=== PATIENT | female | born 1955 | race Caucasian/White ===

== ENCOUNTER 2022-04-25 14:02 | Inpatient (IN) | payer MEDICARE, SELFPAY ==
[2022-04-25] VITALS (28 sets, daily range): BP systolic 118–158; BP diastolic 60–91; PULSE 63–92; RESP 12–26; TEMP 36.6–36.8; O2SAT 90–100; BMI 28.3
--- NOTE | ~2022-04-25 | XR_ITS ---
EXAMINATION: XR chest 2V Exam Date/Time: 04/25/2022 14:15 CDT HISTORY: cp RADIATES TO MID BACK ANXIETY HX HTN Comparison: 01/07/2015. RESULT: Lines, tubes, and devices: None. Lungs and pleura: Clear. Cardiomediastinal silhouette: Stable. Other: No acute osseous or upper abdominal finding. IMPRESSION: No acute cardiopulmonary process. Reviewed, dictated and finalized at location K.
--- NOTE | 2022-04-25 14:03 | ECG_ITS ---
Measurements Intervals [place] Rate: 70 P: 48 DC: 163 QRS: 72 QRSD: 88 T: 13 QT: 403 QTc: 437 Interpretive Statements SINUS RHYTHM NONSPECIFIC ST ABNORMALITY BORDERLINE ECG NO PREVIOUS ECG AVAILABLE FOR COMPARISON Electronically Signed On 04-25-2022 15:37:20 CDT by Ej Guzman M.D.
[2022-04-25 14:26] LABS: Basophils Percent Auto 0.4 % (0.2-1.2); Eosinophils Absolute Auto 0.1 K/mm3 (0-0.3); Eosinophils Percent Auto 1.4 % (0-4.4); Hematocrit 38.5 % (37.0-47.0); Hemoglobin 12.4 g/dL (12.0-15.0); Immature Granulocyte Absolute 0.02 K/mm3 (0.00-0.031); Immature Granulocyte Percent A 0.4 % (0-0.5); Lymphocytes Absolute Auto 0.99 K/mm3 (0.9-3.2); Lymphocytes Percent Auto 17.9 % (18.3-44.2); Mean Corpuscular HGB Conc 32.2 g/dl (32-36); Mean Corpuscular Hemoglobin 29.9 pg (26-34); Mean Corpuscular Volume 92.8 fl (80-100); Mean Platelet Volume 9.6 fl (7.4-10.4); Monocytes Absolute Auto 0.4 K/mm3 (0.1-0.6); Neutrophils Percent Auto 71.9 % (45.5-73.1); Platelet Count Result 229 k/mm3 (150-375); Red Blood Count 4.15 M/mm3 (4.2-5.4); Red Cell Distribution Width 13.3 % (11.5-14.5); White Blood Count 5.5 K/mm3 (4.5-10.0)
[2022-04-25 14:35] LABS: Prothrombin Time 12.6 Seconds (11.1-14.7)
[2022-04-25 14:36] LABS: Partial Thromboplastin Time 30.2 SECONDS (22.3-36.8)
[2022-04-25 14:38] LABS: Alanine Aminotransferase 24 U/L (6-35); Albumin Level 4.4 g/dL (3.5-5.1); Alkaline Phosphatase 102 U/L (38-126); Anion Gap 7 mmol/L (8-16); Aspartate Amino Transferase 25 U/L (14-36); Bilirubin,Total 0.4 mg/dL (0.2-1.3); Blood Urea Nitrogen 18 mg/dL (7-17); Calcium 9.4 mg/dL (8.4-10.2); Carbon Dioxide 24 mmol/L (22-30); Chloride 109 mmol/L (98-107); Estimated CRCL calculation 48 ml/min; Estimated Glomerular Filt Rate > 60; Glucose 115 mg/dL (65-110); Lipase 52 U/L (23-300); Potassium 3.2 mmol/L (3.4-5.0); Sodium 140 mmol/L (137-145)
[2022-04-25 15:04] LABS: Troponin I 0.412 ng/mL (0.000-0.034)
--- NOTE | 2022-04-25 15:23 | ED.GENADULT ---
HPI - General Adult General Chief complaint: Chest Pain Stated complaint: chest pain real bad Time Seen by Provider: 04/25/22 14:55 History of Present Illness HPI narrative: 67-year-old female presents to the emergency department for evaluation of chest pain that is started approximately 11 AM this morning. Patient states that she was waiting in the waiting room and ER to see her cousin who was very close to her and found out that the cousin unexpectedly. This is also the close to the 3-year anniversary of the patient's father dying of a massive heart attack. Patient states that the chest pain is substernal and radiates to her back. Patient states since the pain started it has since improved. Patient states she is still having a chest pressure. Patient denies any prior history of heart disease for herself. Patient does have a psychiatric history. Patient takes clonazepam, alprazolam, gabapentin, Lamictal, Topamax and Cymbalta Related Data Home Medications Medication Instructions Recorded Confirmed alprazolam 1 mg tablet 1 mg PO DAILY 12/12/20 04/25/22 topiramate 100 mg capsule 100 mg PO DAILY 12/12/20 04/25/22 sprinkle,extended release 24 hr clonazepam 1 mg tablet 1 mg PO TID 01/29/22 04/25/22 Allergies Allergy/AdvReac Type Severity Reaction Status Date / Time codeine Allergy Intermediate ITCHING Verified 01/29/22 13:21 morphine Allergy Intermediate ITCHING Verified 01/29/22 13:21 Review of Systems Review of Systems: CONSTITUTIONAL: Denies fever, chills, or sweats. EYES: Denies visual changes, redness, or discharge. ENT: Denies rhinorrhea, congestion, sore throat, or otalgia. CARDIOVASCULAR: See HPI RESPIRATORY: Denies cough or dyspnea. GASTROINTESTINAL: Denies abdominal pain, nausea, vomiting, or diarrhea. GENITOURINARY: Denies dysuria or hematuria. SKIN: Denies rash or itching. MUSCULOSKELETAL: Denies back pain, joint pain, or myalgia. NEUROLOGIC: Denies headache, numbness, or weakness. [facility] Past Medical History Medical History (Updated 04/26/22 @ 06:57 by Juan A Conway MD) Arthritis Bipolar disorder Depression with anxiety Fibromyalgia Gastroesophageal reflux disease Surgical History Surgical History (Updated 04/25/22 @ 20:34 by Sissy Mcnamara PA-C) History of hysterectomy For endometriosis. Family History Family History Father Hypertension Thyroid condition Atrial fibrillation Mother Hypertension Sibling Hypertension Thyroid condition Social History Social History (Updated 04/25/22 @ 20:34 by Sissy Mcnamara PA-C) Social History: Surrogate medical decision maker: Wes Nelson, spouse. Code status: Full code. Smoking status: Never smoker Alcohol intake: never Substance use: never Additional living arrangements comments: Lives in [place] with spouse. Spiritual care concerns: No Exam Narrative: APPEARANCE: Well appearing, no pain, no distress, well-nourished. HEAD: normocephalic, atraumatic. EYES: PERRLA/EOMI, conjunctivae clear. NOSE: Normal no drainage NECK: Supple. No adenopathy, no masses. RESPIRATORY: Airway patent, respirations nonlabored. Clear to auscultation bilaterally, no rales, rhonchi, wheezing. CARDIOVASCULAR: Regular rate and rhythm without murmurs rubs or gallops. ABDOMINAL: Soft, nontender, nondistended, normal bowel sounds MUSCULOSKELETAL: Moves all extremities. Strength/ROM intact, No edema, No calf tenderness. NEURO: Alert. Cranial nerves II through XII intact. Grossly intact SKIN: Warm, dry. Normal Color Course Course Emergency Course: Initial EKG did have some nonspecific ST changes. Troponin was elevated at 0.412. Repeat EKG done 2 hours after arrival showed some improvement of the ST depressions. Case was discussed with Dr. Guzman and well he agreed there was nonspecific ST changes he did not feel qualified as a STEMI, he stated that if the EKG was
[2022-04-25] MEDS: NITROGLYCERIN SL 0.4 MG TABLET SUBLINGUAL (15:43)
[2022-04-25] MEDS: ASPIRIN 81 MG CHEWABLE TABLET 162 MG PO (15:43)
--- NOTE | 2022-04-25 16:15 | PM.IMHP ---
H&P: HPI History of Present Illness Date/Time: 04/25/22 16:15 <Sissy Mcnamara PA-C - Last Filed: 04/25/22 20:38> date of service 04/25/22 16:15 <Marisabel Wilson MD - Last Filed: 04/30/22 08:55> Chief Complaint: Chest pain. <Sissy Mcnamara PA-C - Last Filed: 04/25/22 20:38> Narrative: This is a 67-year-old female with bipolar disorder and anxiety who presented to the ED via private vehicle for evaluation of chest pain. She was in her usual state of health when she got up this morning. Mid morning she received a phone call that her cousin had in the ER at [place], 2 weeks after having open heart surgery. This was unexpected and devastating news to the patient and not long after she developed midsternal chest pressure which radiated through to the back. It has been constant since the outset and she has not noticed any significant aggravating or alleviating factors. She denies associated lightheadedness, dizziness, shortness of breath, nausea, vomiting, and diaphoresis. She has had similar episodes before, mainly at times of high stress. She has not had exertional chest pain or shortness of breath. 30+ years ago she had a stress test which was normal. She has no known history of coronary disease. EKG done on arrival to the ER showed nonspecific ST abnormalities in the high lateral leads and her initial troponin was elevated 0.412. She was given nitroglycerin x1 which took a little bit of the edge off but she continued to have chest pressure and her 3 hour troponin came back at 3.010. Due to ongoing discomfort the decision was made to take her for coronary angiography. <Sissy Mcnamara PA-C - Last Filed: 04/25/22 20:38> Review of Systems Review of Systems: Twelve systems were reviewed. She suffers from anxiety and has panic attacks. Initially she thought her chest pressure was related to anxiety from hearing the news of her cousins passing. No recent cold or flu symptoms. No recent vaccines. Except as documented, all other systems were reviewed and are negative. <Sissy Mcnamara PA-C - Last Filed: 04/25/22 20:38> All systems reviewed & are unremarkable except as noted in HPI and below <Marisabel Wilson MD - Last Filed: 04/30/22 08:55> Constitutional: Constitutional: Denies chills, Denies fatigue, Denies fever(s), Denies headache(s) and Denies snoring <Marisabel Wilson MD - Last Filed: 04/30/22 08:55> Eyes: Eyes: Denies eye discharge and Denies loss of vision <Marisabel Wilson MD - Last Filed: 04/30/22 08:55> ENT: Denies dizziness, Denies headache(s), Denies nasal discharge and Denies sore throat <Marisabel Wilson MD - Last Filed: 04/30/22 08:55> Cardiovascular: Cardiovascular: Reports as per HPI, Reports chest pain, Denies syncope, Denies rapid heart rate, Denies leg edema, Denies dyspnea, Reports dyspnea on exertion, Denies orthopnea and Denies paroxysmal nocturnal dyspnea <Marisabel Wilson MD - Last Filed: 04/30/22 08:55> Respiratory: Respiratory: Denies cough, Denies dyspnea, Denies dyspnea on exertion, Denies snoring and Denies wheezing <Marisabel Wilson MD - Last Filed: 04/30/22 08:55> Gastrointestinal: Gastrointestinal: Denies abdominal pain, Denies diarrhea, Denies nausea and Denies vomiting <Marisabel Wilson MD - Last Filed: 04/30/22 08:55> Genitourinary: Genitourinary: Denies hematuria, Denies urinary frequency, Denies dysuria and Denies flank pain <Marisabel Wilson MD - Last Filed: 04/30/22 08:55> Musculoskeletal: Musculoskeletal: Denies myalgias, Denies arthralgias and Denies joint swelling <Marisabel Wilson MD - Last Filed: 04/30/22 08:55> Neurologic: Denies Abnormal speech present, Denies dizziness, Denies syncope, Denies headache(s), Denies focal weakness and Denies loss of vision <Marisabel Wilson MD - Last Filed: 04/30/22 08:55> Psychiatric: Psychiatric: Denies anxiety and Denies depression <Marisabel Wilson MD - Last Filed: 04/30/22 08:55> Endocrine: Endocrine:
--- NOTE | 2022-04-25 16:25 | ECG_ITS ---
Measurements Intervals [place] Rate: 62 P: 45 VT: 170 QRS: 70 QRSD: 92 T: 61 QT: 443 QTc: 451 Interpretive Statements SINUS RHYTHM CANNOT RULE OUT SEPTAL MYOCARDIAL INFARCTION, OF INDETERMINATE AGE NONSPECIFIC ST ABNORMALITY ABNORMAL ECG BORDERLINE ECG COMPARED TO ECG 04/25/2022 14:08:18 ST ABNORMALITIES HAVE IMPROVED Electronically Signed On 04-26-2022 15:37:14 CDT by Ej Guzman M.D.
--- NOTE | 2022-04-25 18:08 | ECG_ITS ---
Measurements Intervals [place] Rate: 77 P: 38 TN: 161 QRS: 69 QRSD: 98 T: 44 QT: 393 QTc: 447 Interpretive Statements SINUS RHYTHM CANNOT RULE OUT SEPTAL MYOCARDIAL INFARCTION, OF INDETERMINATE AGE MODERATE ST DEPRESSION [0.05+ mV ST DEPRESSION] ABNORMAL ECG COMPARED TO ECG 04/25/2022 16:29:57 NO SIGNIFICANT CHANGES Electronically Signed On 04-26-2022 15:38:50 CDT by Ej Guzman M.D.
[2022-04-25] MEDS: ENOXAPARIN 80 MG/0.8 ML SYRINGE 73 MG SUB-Q (18:23)
--- NOTE | 2022-04-25 18:35 | PC.NURSE ---
Patient groin shaved, pads placed on patient's chest, and second IV started. Patient connected to [employer] monitor and updated on plan of care.
--- NOTE | 2022-04-25 18:56 | PC.NURSE ---
Patient care report given to ED oil laboratory analyst team by race and sports book writer. Care turned over to oil laboratory analyst team and all questions answered. Chart sent up with oil laboratory analyst team.
--- NOTE | 2022-04-25 19:29 | WPDHPUPDATE1 ---
History and Physical Update Update Date/Time: 04/25/22 19:29 History and Physical has been reviewed, including an updated exam of the patient. There are NO changes in the patient's condition. Risks, benefits, and alternatives have been discussed and questions answered. Patient agrees to proceed with procedure.
--- NOTE | 2022-04-25 19:30 | WPDMODSED ---
Moderate Sedation Note-Pt Data Patient Data Diagnosis: Possible anterior STEMI Present Complaint: chest pain Procedure to be performed/Plan: coronary angiogram Allergies Allergy/AdvReac Type Severity Reaction Status Date / Time codeine Allergy Intermediate ITCHING Verified 01/29/22 13:21 morphine Allergy Intermediate ITCHING Verified 01/29/22 13:21 Home Medications Medication Instructions Recorded Confirmed Type alprazolam 1 mg tablet 1 mg PO DAILY 12/12/20 01/29/22 History lamotrigine 200 mg tablet 200 mg PO DAILY 12/12/20 01/29/22 History quetiapine 25 mg tablet (Seroquel) 25 mg PO QHS 12/12/20 01/29/22 History topiramate 100 mg capsule 100 mg PO DAILY 12/12/20 01/29/22 History sprinkle,extended release 24 hr clonazepam 1 mg tablet 2 mg PO DAILY 01/29/22 01/29/22 History gabapentin 800 mg tablet 800 mg PO ONCE 01/29/22 01/29/22 History Current Medications: Active Medications Enoxaparin Sodium (Enoxaparin 80 Mg/0.8 Ml Syringe) 75 mg SUB-Q Q12H JERMAIN Sedation/Anesthesia: No previous sedation/anesthesia problems (including family history). [facility] Past Medical History Medical History Anxiety Bipolar disorder Surgical History Surgical History History of hysterectomy Family History Family History Father Hypertension Thyroid condition Atrial fibrillation Mother Hypertension Sibling Hypertension Thyroid condition Social History Social History Social History: Surrogate medical decision maker: Code status: Full code. Smoking status: Never smoker Alcohol intake: never Mod Sed Physical Exam Physical Exam Pre Procedural Exam: Normal: Appearance, Eyes, Ears, Nose, Neck, Throat, Airway, Lungs, Heart Size, Heart Rate, Heart Rhythm, Neuro Exam, Abdomen, Liver, Kidneys, Spleen, Breasts, Genitalia, Extremities and Skin Hours since solid foods: 8 Hours since liquid intake: 8 Mallampati Classification: class 1 Internal Medicine - PN: Obj Da Vital Signs Vital Signs: Vital Signs - 24 hr 04/25/22 14:13 04/25/22 15:53 04/25/22 15:47 Temperature 36.6 C Pulse Rate 65 66 75 Respiratory Rate 14 Blood Pressure 148/91 H 135/68 Pulse Oximetry 98 99 04/25/22 15:48 04/25/22 16:27 04/25/22 16:52 Temperature Pulse Rate 71 72 78 Respiratory Rate 15 20 19 Blood Pressure Pulse Oximetry 97 97 04/25/22 17:00 04/25/22 17:01 04/25/22 17:02 Temperature Pulse Rate 67 66 68 Respiratory Rate 20 18 18 Blood Pressure 130/66 Pulse Oximetry 98 99 98 04/25/22 17:15 04/25/22 17:16 04/25/22 17:30 Temperature Pulse Rate 73 72 74 Respiratory Rate 17 16 18 Blood Pressure 139/66 Pulse Oximetry 99 100 100 04/25/22 17:32 04/25/22 17:45 04/25/22 17:46 Temperature Pulse Rate 74 75 76 Respiratory Rate 18 26 H 13 Blood Pressure 118/69 131/68 Pulse Oximetry 100 100 100 04/25/22 18:07 04/25/22 18:09 04/25/22 18:15 Temperature Pulse Rate 92 85 81 Respiratory Rate 24 H 18 16 Blood Pressure 158/79 H Pulse Oximetry 100 100 100 04/25/22 18:17 04/25/22 18:34 04/25/22 18:45 Temperature Pulse Rate 82 81 77 Respiratory Rate 19 13 16 Blood Pressure 155/85 H Pulse Oximetry 100 100 99 Meds/Results Medications: Active Medications Generic Name Dose Route Start Last Admin Trade Name Kaylie PRN Reason Stop Dose Admin Enoxaparin Sodium 75 mg 04/26/22 06:00 Enoxaparin 80 Mg/0.8 Ml Syringe SUB-Q Q12H JERMAIN Radiology Results: ITS Impressions Chest X-Ray 04/25/22 14:36 IMPRESSION: No acute cardiopulmonary process. Labs CBC & Chem 7: 04/25/22 14:12 04/25/22 14:12 Labs: Laboratory Results - last 24 hr 04/25/22 04/25/22 04/25/22 14:12 14:12 14:12 WBC 5.5 RBC 4.1
--- NOTE | 2022-04-25 19:31 | PM.IMHP ---
H&P: HPI History of Present Illness Date/Time: date of fowvufs86/15/22 19:31 Chief Complaint: chest pain Narrative: this 67 patient with disorder anxiety who apparently went to visit family member discovered he did pass away. She started to have chest Pain associated withto shortness of breath. pain in the center of the chest feels like pressure and also between his shoulder blades. Denies nausea, vomiting. ER called because initial EKG showed Q-waves leads V1 and V2 with subtle ST elevation and diffuse ST depressions and then repeat EKG showed resolution of these changes however troponins went up to 3. Patient was continuing to have chest pains and repeat EKG 1 more time shows the ischemic changes on the EKG and therefore we decided to proceed ahead with the angiogram. Review of Systems Review of Systems: All systems reviewed & are unremarkable except as noted in HPI and below Constitutional: Constitutional: Denies chills, Denies fatigue, Denies fever(s), Denies headache(s) and Denies snoring Eyes: Eyes: Denies eye discharge and Denies loss of vision ENT: Denies dizziness, Denies headache(s), Denies nasal discharge and Denies sore throat Cardiovascular: Cardiovascular: Reports as per HPI, Reports chest pain, Denies syncope, Denies rapid heart rate, Denies leg edema, Reports dyspnea, Reports dyspnea on exertion, Denies orthopnea and Denies paroxysmal nocturnal dyspnea Respiratory: Respiratory: Denies cough, Reports dyspnea, Reports dyspnea on exertion, Denies snoring and Denies wheezing Gastrointestinal: Gastrointestinal: Denies abdominal pain, Denies diarrhea, Denies nausea and Denies vomiting Genitourinary: Genitourinary: Denies hematuria, Denies urinary frequency, Denies dysuria and Denies flank pain Musculoskeletal: Musculoskeletal: Denies myalgias, Denies arthralgias and Denies joint swelling Neurologic: Denies Abnormal speech present, Denies dizziness, Denies syncope, Denies headache(s), Denies focal weakness and Denies loss of vision Psychiatric: Psychiatric: Denies anxiety and Denies depression Endocrine: Endocrine: Denies cold intolerance, Denies fatigue and Denies heat intolerance Hematologic/Lymphatic: Hematologic/Lymphatic: Denies easy bleeding and Denies easy bruising Allergic/Immunologic: Allergic/Immunologic: Denies urticaria and Denies wheezing PMFSH Past Medical History Medical History Anxiety Bipolar disorder Surgical History Surgical History History of hysterectomy Family History Family History Father Hypertension Thyroid condition Atrial fibrillation Mother Hypertension Sibling Hypertension Thyroid condition Social History Social History Social History: Surrogate medical decision maker: Code status: Full code. Smoking status: Never smoker Alcohol intake: never Meds Home Medications and Allergies Home Medications Medication Instructions Recorded Confirmed Type alprazolam 1 mg tablet 1 mg PO DAILY 12/12/20 01/29/22 History lamotrigine 200 mg tablet 200 mg PO DAILY 12/12/20 01/29/22 History quetiapine 25 mg tablet (Seroquel) 25 mg PO QHS 12/12/20 01/29/22 History topiramate 100 mg capsule 100 mg PO DAILY 12/12/20 01/29/22 History sprinkle,extended release 24 hr clonazepam 1 mg tablet 2 mg PO DAILY 01/29/22 01/29/22 History gabapentin 800 mg tablet 800 mg PO ONCE 01/29/22 01/29/22 History Allergies Allergy/AdvReac Type Severity Reaction Status Date / Time codeine Allergy Intermediate ITCHING Verified 01/29/22 13:21 morphine Allergy Intermediate ITCHING Verified 01/29/22 13:21 Vital Signs Vital Signs - 24 hr 04/25/22 14:13 04/25/22 15:53 04/25/22 15:47 Temperature 36.6 C Pulse Rate 65 66 75 Respiratory Rate 14 Blood Pressure
--- NOTE | 2022-04-25 19:35 | P.PCNCC_ITS ---
Cardiac Cath Procedure Note Date of procedure:: 04/25/22 Performing physician:: Marisabel Wilson MD Date of service April 25, 2022 Indication:: chest pain Brief clinical history:: this 67 patient with disorder anxiety who apparently went to visit family member discovered he did pass away. She started to have chest Pain associated withto shortness of breath. pain in the center of the chest feels like pressure and also between his shoulder blades. Denies nausea, vomiting. ER called because initial EKG showed Q-waves leads V1 and V2 with subtle ST elevation and diffuse ST depressions and then repeat EKG showed resolution of these changes however troponins went up to 3. Patient was continuing to have chest pains and repeat EKG 1 more time shows the ischemic changes on the EKG and therefore we decided to proceed ahead with the angiogram. Procedure Procedure performed:: 1-Moderate sedation that started at 1909 and ended at 1925 with total duration 16 minutes using 3mg of Versed and 75mcg fentanyl. The registered nurse was jacoby talamantes. 2-Selective left and right coronary angiogram. 3-Left heart catheterization with measurement of LVEDP and measurement of gradient across aortic valve. 3- LV angiogram. Sedation/Medication given:: Moderate sedation. Access site:: right radial artery Estimated blood loss:: 10cc Procedure note:: After informed consent patient was brought in to cardiac catheterization technician with the was draped and prepped in usual manner. Moderate sedation was given and the right wrist was infiltrated using 1% lidocaine. Six [place]ian sheath was obtained using micropuncture needle and the modified Seldinger technique. Selective left coronary angiogram was done using JL3.5 catheter with the tip of the catheter placed in the left main coronary artery. Selective right coronary angiogram was done using JR4 catheter with the tip of the catheter placed to the right coronary artery. After that 5 [place] pigtail catheter was advanced across the aortic valve into the left ventricle with measurement of LVEDP and measurement of gradient across aortic valve. LV angiogram done as well. Findings:: 1- left coronary artery is a large artery that divides into large LAD, large circumflex artery. Left main is Free of disease and short. 2- left anterior descending artery is a large artery that runs And stops shortly before the apex and divides into very tiny branches. No disease. Large diagonal branch without disease. 3- leftcircumflex artery is a large artery Without disease. Tortuous. Medium- sized OM1 and large OM2 without significant disease. 4- right coronary artery is Large artery and dominant and free of disease. 5- LVEDP was 25 mm Hgand no gradient across aortic valve. 6- LV angiogram shows and consistent with Takotsubo's cardiomyopathy. basically it is atypical takotsubo cardiomyopathy because both the base and apex are moving and the mid portion of the left ventricle is not moving. Estimated ejection fraction about 40%. 6- opening arterial pressure was 1 60/80 and closing pressure was 130/80 Conclusion:: - stress induced cardiomyopathy. - no evidence of CAD Assessment and Plan Assessment and plan (1) Non-ST elevated myocardial infarction: Code(s): I21.4 - Non-ST elevation (NSTEMI) myocardial infarction Status: Acute Plan - start GRANT-inhibitor and beta-baron as blood pressure tolerates. - will need to repeat echocardiogram in a month time to assess if there is resolution of the cardiomyopathy.
--- NOTE | 2022-04-25 20:51 | ADMGEN ---
This patient, Michelle Nelson, was admitted to Intensive Care Unit-11 at 1944. Patient/family oriented to hospital policies and general routines including ID bracelet, bed and alarms, visiting hours, pain management, procedures, bathroom and other care routines, personal items, smoking policy, room service/diet, and visiting hours. Information on how to activate the Rapid Response Team has been discussed. Patient/Family are encouraged to report perceived risks to care and to ask questions if they do not understand what they are told or what they should do.
[2022-04-25 21:13] LABS: Partial Thromboplastin Time 134.3 SECONDS (22.3-36.8)
[2022-04-25 21:15] LABS: Anion Gap 6 mmol/L (8-16); Blood Urea Nitrogen 15 mg/dL (7-17); Calcium 8.9 mg/dL (8.4-10.2); Carbon Dioxide 25 mmol/L (22-30); Chloride 108 mmol/L (98-107); Estimated CRCL calculation 65 ml/min; Estimated Glomerular Filt Rate > 60; Glucose 108 mg/dL (65-110); Potassium 3.5 mmol/L (3.4-5.0); Sodium 139 mmol/L (137-145)
[2022-04-25] MEDS: clonazePAM (*CRX) 0.5 MG TABLET 1 MG PO (21:57)
[2022-04-26] VITALS (18 sets, daily range): BP systolic 99–149; BP diastolic 48–77; PULSE 60–84; RESP 12–18; TEMP 36.2–37; O2SAT 95–100
--- NOTE | 2022-04-26 | ECG_ITS ---
Measurements Intervals [place] Rate: 65 P: 56 CO: 184 QRS: 88 QRSD: 93 T: 89 QT: 433 QTc: 452 Interpretive Statements SINUS RHYTHM BASELINE ARTIFACT CANNOT RULE OUT SEPTAL MYOCARDIAL INFARCTION, AGE INDETERMINATE NONSPECIFIC ST ABNORMALITY ABNORMAL ECG COMPARED TO ECG 04/25/2022 18:14:38 NO SIGNIFICANT CHANGES Electronically Signed On 04-26-2022 15:41:19 CDT by Ej Guzman M.D.
[2022-04-26 04:59] LABS: Basophils Percent Auto 0.5 % (0.2-1.2); Eosinophils Percent Auto 0.5 % (0-4.4); Hematocrit 37.5 % (37.0-47.0); Hemoglobin 12.3 g/dL (12.0-15.0); Immature Granulocyte Absolute 0.02 K/mm3 (0.00-0.031); Immature Granulocyte Percent A 0.4 % (0-0.5); Lymphocytes Absolute Auto 1.18 K/mm3 (0.9-3.2); Lymphocytes Percent Auto 21.5 % (18.3-44.2); Mean Corpuscular HGB Conc 32.8 g/dl (32-36); Mean Corpuscular Hemoglobin 29.6 pg (26-34); Mean Corpuscular Volume 90.4 fl (80-100); Mean Platelet Volume 9.4 fl (7.4-10.4); Monocytes Absolute Auto 0.6 K/mm3 (0.1-0.6); Monocytes Percent Auto 11.5 % (2.6-8.5); Neutrophils Absolute Auto 3.6 K/mm3 (1.3-6.7); Neutrophils Percent Auto 65.6 % (45.5-73.1); Platelet Count Result 224 k/mm3 (150-375); Red Blood Count 4.15 M/mm3 (4.2-5.4); Red Cell Distribution Width 13.2 % (11.5-14.5); White Blood Count 5.5 K/mm3 (4.5-10.0)
[2022-04-26 05:09] LABS: Anion Gap 7 mmol/L (8-16); Blood Urea Nitrogen 15 mg/dL (7-17); Carbon Dioxide 24 mmol/L (22-30); Chloride 110 mmol/L (98-107); Estimated CRCL calculation 65 ml/min; Estimated Glomerular Filt Rate > 60; Glucose 97 mg/dL (65-110); Potassium 3.4 mmol/L (3.4-5.0); Sodium 141 mmol/L (137-145)
[2022-04-26] MEDS: ACETAMINOPHEN 325 MG TABLET 650 MG PO ×3 (05:29→17:02)
[2022-04-26] MEDS: clonazePAM (*CRX) 0.5 MG TABLET 1 MG PO ×2 (08:06→20:08)
[2022-04-26] MEDS: ASPIRIN 81 MG ENTERIC TABLET PO (08:06)
[2022-04-26] MEDS: ALPRAZolam (*CRX) 0.5 MG TABLET 1 MG PO (09:29)
--- NOTE | 2022-04-26 09:29 | PM.IMPN ---
Progress Note: A&P Assessment and Plan (1) Takotsubo cardiomyopathy: Code(s): I51.81 - Takotsubo syndrome Status: Acute Assessment and Plan: Noted on heart catheterization yesterday, appreciate cardiology consultation (2) Hypokalemia: Code(s): E87.6 - Hypokalemia Status: Acute Assessment and Plan: Stable, monitor (3) Bipolar disorder: Qualifiers: Active/Remission status: remission status unspecified Qualified Code(s): F31.9 - Bipolar disorder, unspecified Code(s): F31.9 - Bipolar disorder, unspecified Status: Acute Assessment and Plan: Continue home Xanax, Klonopin and Topamax (4) Depression with anxiety: Code(s): F41.8 - Other specified anxiety disorders Status: Acute Assessment and Plan: Medications per above Plan DVT prophylaxis with SCDs GI prophylaxis not indicated Code status full code Subjective Date/time seen: 04/26/22 09:29 Interval history: No overnight events noted. No chest pain or shortness of breath. No nausea, vomiting or diarrhea. No fevers or chills. Patient states she feels very tearful, depressed and anxious over her hospitalization as well as the loss of her loved one. She states she has a long history of bipolar, depression anxiety and plans to speak with her psychiatrist over possible medication changes based on this event. Review of Systems Review of Systems: 12 point review of systems was assessed and was negative except as noted in the HPI Exam Narrative: General: No acute distress, alert and oriented per baseline HEENT: Atraumatic, normocephalic, mucous membranes moist CV: Regular rate and rhythm, S1, S2 Lungs: Clear to auscultation bilaterally, no rales or crackles noted, no wheezes, good air entry Abdomen: Soft, nontender, nondistended Extremities: Normal to inspection Skin: No rashes noted, no lesions or wounds seen Psych: Euthymic, normal affect Objective Data Vital Signs Vital Signs: Vital Signs - 24 hr 04/25/22 14:13 04/25/22 15:53 04/25/22 15:47 Temperature 97.9 F Pulse Rate 65 66 75 Pulse Rate [Bilateral Radial] Respiratory Rate 14 Blood Pressure 148/91 H 135/68 Pulse Oximetry 98 99 Oxygen Delivery 04/25/22 15:48 04/25/22 16:27 04/25/22 16:52 Temperature Pulse Rate 71 72 78 Pulse Rate [Bilateral Radial] Respiratory Rate 15 20 19 Blood Pressure Pulse Oximetry 97 97 Oxygen Delivery 04/25/22 17:00 04/25/22 17:01 04/25/22 17:02 Temperature Pulse Rate 67 66 68 Pulse Rate [Bilateral Radial] Respiratory Rate 20 18 18 Blood Pressure 130/66 Pulse Oximetry 98 99 98 Oxygen Delivery 04/25/22 17:15 04/25/22 17:16 04/25/22 17:30 Temperature Pulse Rate 73 72 74 Pulse Rate [Bilateral Radial] Respiratory Rate 17 16 18 Blood Pressure 139/66 Pulse Oximetry 99 100 100 Oxygen Delivery 04/25/22 17:32 04/25/22 17:45 04/25/22 17:46 Temperature Pulse Rate 74 75 76 Pulse Rate [Bilateral Radial] Respiratory Rate 18 26 H 13 Blood Pressure 118/69 131/68 Pulse Oximetry 100 100 100 Oxygen Delivery 04/25/22 18:07 04/25/22 18:09 04/25/22 18:15 Temperature Pulse Rate 92 85 81 Pulse Rate [Bilateral Radial] Respiratory Rate 24 H 18 16 Blood Pressure 158/79 H Pulse Oximetry 100 100 100 Oxygen Delivery 04/25/22 18:17 04/25/22 18:34 04/25/22 18:45 Temperature Pulse Rate 82 81 77 Pulse Rate [Bilateral Radial] Respiratory Rate 19 13 16 Blood Pressure 155/85 H Pulse Oximetry 100 100 99 Oxygen Delivery 04/25/22 19:44 04/25/22 20:00 04/25/22 22:00 Temperature 98.2 F Pulse Rate 68 75 65 Pulse Rate [Bilateral Radial] Respiratory Rate 12 Blood Pressure 129/74 Pulse Oximetry 99 Oxygen Delivery 04/25/22 23:00 04/25/22 20:33 04/25/22 21:03 Temperature 98.2 F Pulse Rate 70 71 Pulse Rate [Bilateral Radial] Respiratory Rate 14 14 Blood Pre
[2022-04-26] MEDS: carvediloL 3.125 MG TABLET PO ×2 (11:58→21:51)
--- NOTE | 2022-04-26 12:32 | PC.NURSE ---
transferred to 210 at 1220
--- NOTE | 2022-04-26 12:45 | WPDCNINT ---
Assessment and Plan Assessment and plan (1) Non-ST elevation [place] (NSTEMI): Code(s): I21.4 - Non-ST elevation (NSTEMI) myocardial infarction Status: Acute Assessment and Plan: Patient presented with chest pain associated with nausea, vomiting, diaphoresis, shortness of breath -EKG showed nonspecific ST-T changes -troponins were elevated -patient was taken to the cardiac tanbark laborer for coronary angiogram which showed no coronary artery disease. Stress induced cardiomyopathy/takotsubo syndrome. Estimated EF was 40% -cardiology following the patient -continue aspirin, (2) Takotsubo cardiomyopathy: Code(s): I51.81 - Takotsubo syndrome Status: Acute Assessment and Plan: Takotsubo cardiomyopathy with EF of 40% -cardiology following the patient -discussed with cardiology regarding beta baron, GRANT-inhibitor and statin, director of research and development will be ordering these medications (3) Depression with anxiety: Code(s): F41.8 - Other specified anxiety disorders Status: Acute Assessment and Plan: Continue Xanax and clonazepam -continue topiramate Plan Nutrition: Heart healthy diet Discussed with cardiology Code Status: Full code Critical Care Time Spent: 42 minutes Due to a high probability of clinically significant, life threatening deterioration, the patient required my highest level of preparedness to intervene emergently and I personally spent this critical care time directly and personally managing the patient. This critical care time included obtaining a history; examining the patient; pulse oximetry; ordering and review of studies; arranging urgent treatment with development of a management plan; evaluation of patient's response to treatment; frequent reassessment; and discussions with other providers. It was exclusive of separately billable procedures and treating other patients and teaching time. Please see Assessment and Plan section and the rest of the note for further information on patient assessment and treatment Lumber Carrier Consult Note Consult date: 04/26/22 Reason for consult: Chest pain, status post coronary angiogram, no evidence of coronary artery disease, stress induced cardiomyopathy HPI: Michelle Nelson is a 67 year old female with past medical history of anxiety and bipolar disorder presented the ED with complains of chest pain. According the records , on the day of admission patient received a call that her cousin had , this was unexpected and devastating news to the patient and not long after she developed midsternal chest pain, radiates through the back. It was associated with lightheadedness, dizziness, shortness of breath, nausea, vomiting diaphoresis. EKG in the ER showed nonspecific ST-T abnormalities, troponins were elevated, repeat troponin was significantly elevated 3.01, patient was taken coronary angiogram, with no evidence of coronary artery disease. Angiogram showed stress induced cardiomyopathy or takotsubo syndrome. Patient was transferred to the ICU for further management Patient seen and examined the ICU, is awake is awake, alert, oriented x3. Patient is tearful and stated that she has a history of anxiety and she just lost a cousin. She is requesting for her home Xanax, which was ordered. Patient is hemodynamically stable, on room air with good O2 sats, adequate urine output. Denies any chest pain, shortness for breath, abdominal pain, nausea, vomiting at this time Review of Systems Review of Systems: All systems reviewed & are unremarkable except as noted in HPI and below PMFSH Past Medical History Medical History (Updated 04/26/22 @ 09:31 by Toña Sheffield, ) Arthritis Bipolar disorder Depression with anxiety Fibromyalgia Gastroesophageal reflux disease Surgical History Surgical History (Updated 04/25/22 @ 20:34 by Sissy Mcnamara PA-C) History of hysterectomy For endometriosis. Family History Family History
--- NOTE | 2022-04-26 14:22 | PM.PNCARD ---
Progress Note: A&P Assessment and Plan (1) Takotsubo cardiomyopathy: Code(s): I51.81 - Takotsubo syndrome Status: Acute Assessment and Plan: Compensated, moderate LV dysfunction EF 40% atypical takotsubo pattern with hypokinesis of the mid segments. Explained pathophysiology, prognosis and expectations for recovery. Patient has a classic presentation with sudden onset chest pain after receiving traumatic news of the unexpected of a very close cousin. She presented with progressive and unrelenting chest pain with elevated troponin and abnormal ECG. Coronary angiography revealed normal anatomy. Clinically she is hemodynamically stable and not in decompensated heart failure. Explained the importance of medical management. -all questions answered to her satisfaction. Patient verbalized understanding. -Will add carvedilol 3.25 mg twice daily, lisinopril 2.5 mg daily. -Check EKG in a.m.. -2D echocardiogram in a.m. -DVT prophylaxis -Telemetry -Stable for transfer to IMU. (2) Non-ST elevation [place] (NSTEMI): Code(s): I21.4 - Non-ST elevation (NSTEMI) myocardial infarction Status: Acute Assessment and Plan: No underlying CAD with atypical takotsubo pattern involving hypokinesis of the mid segments, moderate LV dysfunction EF 40%. Aspirin 81 mg daily. Check lipid panel in a.m.. (3) PVCs (premature ventricular contractions): Code(s): I49.3 - Ventricular premature depolarization Status: Acute Assessment and Plan: Carvedilol 3.125 mg twice daily. No sustained or nonsustained VT thus far. Will continue to monitor clinically. (4) Anxiety: Code(s): F41.9 - Anxiety disorder, unspecified Status: Acute Assessment and Plan: Management per primary service. Subjective Date/time seen: Date of service: 04/26/22 14:22 Follow-up for chest pain, elevated troponin Patient underwent left heart catheterization yesterday evening due to persistent chest pain elevated troponin which revealed no CAD. Patient has mild residual discomfort although much improved. Denies shortness of breath. Complains of discomfort at right radial arterial access site with hand movement. Patient's sister at bedside. Lengthy discussion had with the patient and her sister with regards to pathophysiology expected course, importance of medical management of stress-induced cardiomyopathy. All questions answered to their satisfaction. Review of Systems Review of Systems: Remainder of the review of systems is otherwise negative aside from that noted in the HPI. All systems reviewed & are unremarkable except as noted in HPI and below Constitutional: Constitutional: Reports as per HPI and Reports no additional constitutional complaints Eyes: Eyes: Reports as per HPI and Reports no additional eye complaints ENT: Reports system reviewed and no additional complaints, except as documented and Reports as per HPI Cardiovascular: Cardiovascular: Reports as per HPI and Reports no additional cardiovascular complaints Respiratory: Respiratory: Reports as per HPI and Reports no additional respiratory complaints Gastrointestinal: Gastrointestinal: Reports as per HPI and Reports no additional gastrointestinal complaints Genitourinary: Genitourinary: Reports as per HPI Musculoskeletal: Musculoskeletal: Reports no additional musculoskeletal complaints and Reports as per HPI Integumentary/Breasts: Skin/Breast: Reports system reviewed and no additional complaints, except as docu and Reports as per HPI Neurologic: Reports system reviewed and no additional complaints, except as documented and Reports as per HPI Psychiatric: Psychiatric: Reports no additional psychiatric complaints and Reports as per HPI Endocrine: Endocrine: Reports no additional endocrine complaints and Reports as per HPI Hematologic/Lymphatic: Hematologic/Lymphatic: Reports no additional hematologic/lymphatic complaints and Reports as pe
[2022-04-26] MEDS: lisinopriL 2.5 MG TABLET PO (14:58)
--- NOTE | 2022-04-26 19:14 | PC.NURSE ---
On 04/26/22, the student, Shana Reilly, provided care and completed [employer] documentation on this patient. I have reviewed the student's documentation and agree with the findings.
[2022-04-27] VITALS (12 sets, daily range): BP systolic 91–123; BP diastolic 54–73; PULSE 58–79; RESP 14–18; TEMP 36.6–37; O2SAT 97–99
--- NOTE | 2022-04-27 | ECHO_ITS ---
Patient Info Name: Michelle Nelson Age: 67 years : 1955 Gender: Female Ht: 64 in Wt: 161 lbs BSA: 1.83 m2 HR: 60 bpm BP: 113 / 58 mmHg Heart Rhythm: Sinus Rhythm Technical Quality: Fair Exam Date: 04/27/2022 8:40 AM Exam Location: [facility] Card Pulmonary Patient Status: Inpatient Admit Date: 04/25/2022 Staff Ordering Physician: Ej Guzman MD Formal Service Waiter: Eli Yan RDCS Attending Provider: Daysi Rubalcava MD Referring Physician: Thomas COON; Exam Type: CA echo dop color flow w con Study Info Indications - TAKOTSUBO CM Complete two-dimensional, color flow and Doppler transthoracic echocardiogram is performed. Contrast/Agitated Saline Contrast/Ag. Saline: Definity Amount: 3.00 ml Administered By: Eli Yan RDCS Existing IV Access: Yes IV Access Condition: patent with no signs of infiltration Summary 1. Complete two-dimensional, color flow and Doppler transthoracic echocardiogram is performed. 2. Left ventricular systolic function is normal, estimated at 60-65%. 3. The anteroseptal segment and mid septal segments are hypodynamic. 4. No valvular dysfunction. Left Ventricle Left ventricular chamber dimension is normal. Left ventricular systolic function is normal, estimated at 60-65%. The left ventricular diastolic function is grade I diastolic dysfunction. The anteroseptal segment and mid septal segments are hypodynamic. Right Ventricle Right ventricular chamber dimension is normal. Left Atria Left atrial chamber dimension is normal. Right Atria Right atrial chamber dimension is normal. Aortic Valve The aortic valve is normal. Pulmonic Valve The pulmonic valve is not well visualized. Mitral Valve The mitral valve has normal leaflets. Tricuspid Valve The tricuspid valve leaflets are normal. Pericardium/Pleural The pericardium appears normal. Aorta The aortic root size at the sinus of Valsalva is normal. Left Ventricular Outflow Tract Name Value Normal LVOT 2D LVOT Diameter 2.04 cm LVOT Doppler LVOT Peak Gradient 6 mmHg LVOT Mean Gradient 3 mmHg LVOT VTI 26.42 cm LVOT VTI/AV VTI Ratio 0.88 LVOT Stroke Volume 86.39 ml LVOT CO 5.54 l/min LVOT CI 3.02 L/min/m2 Pulmonic Valve Name Value Normal RVOT Doppler RVOT Peak Gradient 2 mmHg PV Doppler PV Peak Gradient 4 mmHg Mitral Valve Name Value Normal
[2022-04-27 05:21] LABS: Cholesterol 206 mg/dL (0-200); HDL Direct 55 mg/dL; Triglycerides 106 mg/dL (<150)
[2022-04-27 05:32] LABS: LDL Cholesterol Direct 102 mg/dL
[2022-04-27] MEDS: clonazePAM (*CRX) 0.5 MG TABLET 1 MG PO (07:10)
[2022-04-27] MEDS: PERFLUTREN LIPID MICROSPHERES 1.5 ML VIAL DILUTED TO 10 ML TOTAL VOLUME IV PUSH (09:07)
--- NOTE | 2022-04-27 09:07 | IVDEFINITY ---
Prior to administration of IV Definity the patient was educated on the risks and benefits of the imaging enhancing agent including potential adverse side effects. The patient verbalized understanding. Allergies were verified. No exclusion criteria were identified and at least one of the following inclusion criteria were met: 1) physician request, 2) patient technically difficult to image (per the [place] [employer]chocardi[employer] guidelines of two or more segments not discernable within the apical view), or 3) questionable left ventricular function. ?
[2022-04-27] MEDS: ASPIRIN 81 MG ENTERIC TABLET PO (09:20)
[2022-04-27] MEDS: ALPRAZolam (*CRX) 0.5 MG TABLET 1 MG PO (09:21)
[2022-04-27] MEDS: carvediloL 3.125 MG TABLET PO (09:21)
[2022-04-27] MEDS: lisinopriL 2.5 MG TABLET PO (09:21)
[2022-04-27] MEDS: TOPIRAMATE 100 MG TABLET PO (09:21)
[2022-04-27 09:41] LABS: Basophils Percent Auto 0.7 % (0.2-1.2); Eosinophils Absolute Auto 0.1 K/mm3 (0-0.3); Eosinophils Percent Auto 1.5 % (0-4.4); Hematocrit 36.7 % (37.0-47.0); Hemoglobin 11.8 g/dL (12.0-15.0); Immature Granulocyte Absolute 0.01 K/mm3 (0.00-0.031); Immature Granulocyte Percent A 0.2 % (0-0.5); Lymphocytes Absolute Auto 1.19 K/mm3 (0.9-3.2); Lymphocytes Percent Auto 25.9 % (18.3-44.2); Mean Corpuscular HGB Conc 32.2 g/dl (32-36); Mean Corpuscular Hemoglobin 30.4 pg (26-34); Mean Corpuscular Volume 94.6 fl (80-100); Mean Platelet Volume 10.2 fl (7.4-10.4); Monocytes Absolute Auto 0.5 K/mm3 (0.1-0.6); Monocytes Percent Auto 11.7 % (2.6-8.5); Neutrophils Absolute Auto 2.8 K/mm3 (1.3-6.7); Platelet Count Result 215 k/mm3 (150-375); Red Blood Count 3.88 M/mm3 (4.2-5.4); Red Cell Distribution Width 13.5 % (11.5-14.5); White Blood Count 4.6 K/mm3 (4.5-10.0)
[2022-04-27 09:55] LABS: Alanine Aminotransferase 22 U/L (6-35); Albumin Level 3.6 g/dL (3.5-5.1); Alkaline Phosphatase 84 U/L (38-126); Anion Gap 7 mmol/L (8-16); Aspartate Amino Transferase 44 U/L (14-36); Bilirubin,Total 0.4 mg/dL (0.2-1.3); Blood Urea Nitrogen 17 mg/dL (7-17); Calcium 8.9 mg/dL (8.4-10.2); Carbon Dioxide 21 mmol/L (22-30); Chloride 109 mmol/L (98-107); Estimated CRCL calculation 51 ml/min; Estimated Glomerular Filt Rate > 60; Glucose 103 mg/dL (65-110); Potassium 3.1 mmol/L (3.4-5.0); Sodium 137 mmol/L (137-145)
--- NOTE | 2022-04-27 10:51 | PM.PNCARD ---
Progress Note: A&P Assessment and Plan (1) PVCs (premature ventricular contractions): Code(s): I49.3 - Ventricular premature depolarization Status: Acute (2) Takotsubo cardiomyopathy: Code(s): I51.81 - Takotsubo syndrome Status: Acute (3) Non-ST elevation [place] (NSTEMI): Code(s): I21.4 - Non-ST elevation (NSTEMI) myocardial infarction Status: Acute Plan Cardiac cath consistent with stress cardiomyopathy. TTE pending - will follow-up on results. Continue coreg and lisinopril. Will increase Lisinopril dose to 5mg. Lipid panel with total chol 206, LDL 102, will start statin. Subjective Date/time seen: 04/27/22 10:51 Interval history: Reason for visit: Follow-up on cardiomyopathy No acute events overnight. Patient reports feeling tired. Had chest pain last night, but not today. No shortness of breath. Review of Systems Review of Systems: All systems reviewed & are unremarkable except as noted in HPI and below (subjective) Exam Const: General: comfortable and no acute distress Neck: Neck: no JVD Resp: Effort & Inspection: normal respiratory effort Auscultation: clear to auscultation bilaterally Cardio: Rate: regular rate Rhythm: regular rhythm Heart sounds: no murmurs GI: GI Palp: Yes Soft to palpation and No Tenderness to palpation present (GI) Skin: General skin exam: normal color Neuro: Speech: normal speech Extrem: General: no edema Psych: Mental Status: mental status grossly normal Objective Data Vital Signs Vital Signs: Vital Signs - 24 hr 04/26/22 11:08 04/26/22 11:13 04/26/22 11:58 Temperature Pulse Rate 76 72 71 Pulse Rate [Bilateral Radial] 76 Respiratory Rate 14 16 Blood Pressure 132/73 Pulse Oximetry 97 95 Oxygen Delivery Room Air 04/26/22 12:00 04/26/22 12:00 04/26/22 14:00 Temperature 36.3 C L Pulse Rate 66 74 71 Pulse Rate [Bilateral Radial] Respiratory Rate 16 Blood Pressure 149/71 H Pulse Oximetry 97 Oxygen Delivery 04/26/22 16:00 04/26/22 16:00 04/26/22 16:00 Temperature 37.0 C Pulse Rate 72 74 Pulse Rate [Bilateral Radial] Respiratory Rate 16 Blood Pressure 119/73 Pulse Oximetry 97 Oxygen Delivery Room Air 04/26/22 18:00 04/26/22 20:00 04/26/22 21:51 Temperature 36.4 C Pulse Rate 77 66 74 Pulse Rate [Bilateral Radial] Respiratory Rate 18 Blood Pressure 106/59 L Pulse Oximetry 99 Oxygen Delivery 04/26/22 20:00 04/26/22 20:00 04/26/22 22:00 Temperature Pulse Rate 74 74 64 Pulse Rate [Bilateral Radial] Respiratory Rate 18 Blood Pressure Pulse Oximetry 99 Oxygen Delivery Room Air 04/26/22 23:46 04/27/22 00:00 04/27/22 00:00 Temperature 36.5 C Pulse Rate 62 62 62 Pulse Rate [Bilateral Radial] Respiratory Rate 18 18 Blood Pressure 99/48 L Pulse Oximetry 99 99 Oxygen Delivery Room Air 04/27/22 02:00 04/27/22 04:00 04/27/22 04:00 Temperature 36.7 C Pulse Rate 58 L 62 64 Pulse Rate [Bilateral Radial] Respiratory Rate 18 Blood Pressure 113/58 L Pulse Oximetry 99 Oxygen Delivery 04/27/22 04:00 04/27/22 06:16 04/27/22 07:26 Temperature 37.0 C Pulse Rate 62 60 71 Pulse Rate [Bilateral Radial] Respiratory Rate 18 14 Blood Pressure 123/60 Pulse Oximetry 99 98 Oxygen Delivery Room Air 04/27/22 09:21 04/27/22 08:00 04/27/22 10:00 Temperature Pulse Rate 67 74 79 Pulse Rate [Bilateral Radial] Respiratory Rate Blood Pressure Pulse Oximetry Oxygen Delivery Intake/Output Intake/Output: Intake & Output 04/24/22 04/25/22 04/26/22 04/27/22 23:59 23:59 23:59 23:59 Intake Total 1070 370 Output Total 1800 Balance -730 370 Meds/Results Medications: Active Medications Generic Name Dose Route Start Last Admin Trade Name Freq PRN Reason Stop Dose Admin Acetaminophen 650 mg 04/26/22 03:36 04/26/22 17:02 Acetaminophen 325 Mg Tablet PO 10
--- NOTE | 2022-04-27 14:11 | PM.DS ---
DS: Admitting Diagnosis Discharge Date April 27, 2022 Admitting Diagnosis Chest pain DS: Discharge Diagnosis Discharge Diagnosis (1) Non-ST elevation [place] (NSTEMI): Code(s): I21.4 - Non-ST elevation (NSTEMI) myocardial infarction Status: Acute Assessment and Plan: Patient presented with chest pain associated with nausea, vomiting, diaphoresis, shortness of breath -EKG showed nonspecific ST-T changes -troponins were elevated -patient was taken to the cardiac canvas shop laborer for coronary angiogram which showed no coronary artery disease. Stress induced cardiomyopathy/takotsubo syndrome. Estimated EF was 40% -cardiology following the patient -continue aspirin, (2) Takotsubo cardiomyopathy: Code(s): I51.81 - Takotsubo syndrome Status: Acute Assessment and Plan: Takotsubo cardiomyopathy with EF of 40% -cardiology following the patient -discussed with cardiology regarding beta baron, GRANT-inhibitor and statin, displayer will be ordering these medications (3) Depression with anxiety: Code(s): F41.8 - Other specified anxiety disorders Status: Acute Assessment and Plan: Continue Xanax and clonazepam -continue topiramate (4) Bipolar disorder: Qualifiers: Active/Remission status: remission status unspecified Qualified Code(s): F31.9 - Bipolar disorder, unspecified Code(s): F31.9 - Bipolar disorder, unspecified Status: Acute (5) Hypokalemia: Code(s): E87.6 - Hypokalemia Status: Acute DS: Summary Hospital Course Hospital Course: 67-year-old female with bipolar disorder and anxiety who presented to the ED via private vehicle for evaluation of chest pain. She was in her usual state of health when she got up this morning. Mid morning she received a phone call that her cousin had in the ER at [place], 2 weeks after having open heart surgery. This was unexpected and devastating news to the patient and not long after she developed midsternal chest pressure which radiated through to the back. It has been constant since the outset and she has not noticed any significant aggravating or alleviating factors. She denies associated lightheadedness, dizziness, shortness of breath, nausea, vomiting, and diaphoresis. She has had similar episodes before, mainly at times of high stress. She has not had exertional chest pain or shortness of breath. 30+ years ago she had a stress test which was normal. She has no known history of coronary disease. EKG done on arrival to the ER showed nonspecific ST abnormalities in the high lateral leads and her initial troponin was elevated 0.412. She was given nitroglycerin x1 which took a little bit of the edge off but she continued to have chest pressure and her 3 hour troponin came back at 3.010. Due to ongoing discomfort the decision was made to take her for coronary angiography. Patient was diagnosed with takotsubo cardiomyopathy and heart catheterization was performed showing normal anatomy. During the heart catheterization, EF thought to be around 40% with hypokinesis noted. Patient was started on aspirin 81 mg, Lipitor 20 mg, 3.25 mg twice daily, lisinopril 2.5 mg daily, this was increased to 5 mg at discharge. EKG was ordered and was within normal limits. A transthoracic echo was also ordered and showed an EF of 60% with grade 1 diastolic dysfunction, no significant valvular abnormalities. All symptoms resolved, patient was discharged in good condition with close outpatient follow-up by Cardiology on new cardiac medications as noted on the discharge med rec. Time Spent with Patient Time attestation: Total time spent providing and/or coordinating discharge services: Exam Narrative: General: No acute distress, alert and oriented per baseline HEENT: Atraumatic, normocephalic, mucous membranes moist CV: Regular rate and rhythm, S1, S2 Lungs: Clear to auscultation bilaterally, no rales or crackles noted, no wheezes
[2022-04-27] MEDS: POTASSIUM CHLORIDE 20 MEQ TABLET 40 MEQ PO (14:44)
[2022-04-27] MEDS: POTASSIUM CHLORIDE INJ 40 MEQ in SODIUM CHLORIDE 0.9% IV 500 ML 130 MEQ IVPB (14:44)
== END 2022-04-27 18:50 | disposition home or self-care (01) | DRG 287 ==
LOC: ANHED 15:18 → ANHIMU 17:56 → ANHICU 19:37 → ANHIMU 04-26 12:17
PROVIDERS: Emergency Medicine; Internal Medicine Cardiovascular Disease; Physician Assistant; Admitting Provider Family Medicine; Emergency Provider Emergency Medicine; PCP Internal Medicine; Visit Provider Student in an Organized Health Care Education/Training Program
PROC: 4A023N7 Measurement of Cardiac Sampling and Pressure, Left Heart, Percutaneous Approach (ICD-10-PCS; CPT 93452; principal; 2022-04-25 18:45)
DX: I51.81 Takotsubo syndrome (principal); I49.3 Ventricular premature depolarization; E87.6 Hypokalemia; F41.8 Other specified anxiety disorders; F31.9 Bipolar disorder, unspecified; K21.9 Gastro-esophageal reflux disease without esophagitis; M19.90 Unspecified osteoarthritis, unspecified site; M79.7 Fibromyalgia; Z28.21 Immunization not carried out because of patient refusal; Z90.710 Acquired absence of both cervix and uterus
CPT/HCPCS: 36415; 71046; 80048; 80053; 80061; 83690; 83735; 84443; 84484; 85025; 85610; 85730; 93005; 93458; 99291; A9270; C1887; C1894; C8929; J0583; J1644; J1650; J2250; J3010; J3480; J7040; Q9957

== ENCOUNTER 2022-05-06 12:47 | Outpatient (CLI) | payer MEDICARE, SELFPAY ==
[2022-05-07 11:20] LABS: Kit Draw Collected
== END 2022-05-06 12:48 | disposition home or self-care (01) ==
LOC: ANHGOSHLAB 12:51
PROVIDERS: PCP Internal Medicine; Visit Provider Nurse Practitioner
DX: E87.6 Hypokalemia (principal); I51.81 Takotsubo syndrome
CPT/HCPCS: 36415

== ENCOUNTER 2023-08-24 00:33 | Day surgery (SDC) | payer MEDICARE, SELFPAY ==
[2023-07-30 09:40] VITALS: BMI 29.3
[2023-08-24 06:12] VITALS: BP 178/81; PULSE 78; RESP 18; TEMP 36.7; O2SAT 98; BMI 28.8
[2023-08-24] MEDS: LACTATED RINGERS 1,000 ML 150 ML IV CONT (06:36)
--- NOTE | 2023-08-24 07:22 | PM.HPGS ---
History of Present Illness History of Present Illness Consent: Risks, benefits, and alternatives have been discussed and questions answered. Patient agrees to proceed with procedure. Chief complaint: change in bowel habits, constipation Narrative: Michelle Nelson is a 68 year old female who never had a colonoscopy, noted change in bowel habits Review of Systems Constitutional: Constitutional: Denies headache(s) and Denies weakness Eyes: Eyes: Denies blurry vision ENT: Reports Normal hearing present, Denies headache(s) and Denies neck pain Cardiovascular: Cardiovascular: Denies chest pain and Denies dyspnea Respiratory: Respiratory: Denies dyspnea Gastrointestinal: Gastrointestinal: Reports no additional gastrointestinal complaints Genitourinary: Genitourinary: Denies dysuria Musculoskeletal: Musculoskeletal: Denies neck pain Integumentary/Breasts: Skin/Breast: Denies dry skin Neurologic: Reports Normal hearing present, Denies headache(s) and Denies weakness Psychiatric: Psychiatric: Denies anxiety Endocrine: Endocrine: Denies change in body appearance Hematologic/Lymphatic: Hematologic/Lymphatic: Denies easy bleeding Allergic/Immunologic: Allergic/Immunologic: Denies urticaria PMFSH Past Medical History Medical History Arthritis Bipolar disorder Depression with anxiety Fibromyalgia Gastroesophageal reflux disease Surgical History Surgical History History of hysterectomy For endometriosis. Family History Family History Father Hypertension Thyroid condition Atrial fibrillation Mother Hypertension Sibling Hypertension Thyroid condition Father Hypertension Family history of arthritis Mother Hypertension Family history of arthritis Family history of chronic obstructive pulmonary disease Social History Social History (Updated 07/15/23 @ 10:47 by Stephanie Lee [facility]) Social History: Caffeine: rarely Surrogate medical decision maker: Wes Nelson, spouse. Code status: Full code. Smoking status: Never smoker Alcohol intake: never Substance use: never Substance use type: does not use Do You Feel Safe in your Home?: Yes Lack of Transportation: No Lack of Food: Never True Current Housing: I Have Housing Concerned About Future Housing: Decline to Answer Difficulty Paying Gas/Electric Bills: Decline to Answer Difficulty Paying for Meds: No Currently Unemployed: No Education: High School Diploma/GED Difficulty w/ Childcare or Family Care: No Living arrangements: other Additional living arrangements comments: with sp Spiritual care concerns: No Meds Home Medications and Allergies Home Medications Medication Instructions Recorded Confirmed Type alprazolam 1 mg tablet 1 mg PO DAILY 12/12/20 08/24/23 History clonazepam 1 mg tablet 1 mg PO TID 01/29/22 08/24/23 History aspirin 81 mg tablet,delayed 81 mg PO QAM 1 month #30 tabs 04/27/22 08/24/23 Rx release acetaminophen 500 mg tablet 500 mg PO Q6H PRN Pain 10/09/22 08/24/23 History carvedilol 3.125 mg tablet 3.125 mg PO Q12H 10/09/22 08/24/23 History gabapentin 800 mg tablet 800 mg PO BID PRN Pain 01/08/23 08/24/23 History lamotrigine 100 mg tablet 200 mg PO DAILY 01/08/23 08/24/23 History lisinopril 10 mg tablet 10 mg PO DAILY #90 tabs 02/23/23 08/24/23 Rx hydrochlorothiazide 12.5 mg tablet 12.5 mg PO DAILY #90 tabs 07/01/23 08/24/23 Rx amitriptyline 10 mg tablet 10 mg PO QHS #90 tabs 07/15/23 08/24/23 Rx duloxetine 60 mg capsule,delayed 120 mg PO DAILY 07/15/23 08/24/23 History release topiramate 100 mg tablet 100 mg PO DAILY 07/15/23 08/24/23 History Allergies Allergy/AdvReac Type Severity Reaction Status Date / Time codeine Allergy Intermediate ITCHING Verified 08/24/23 06:22 morphine Allergy Intermediate ITCHING Ve
[2023-08-24 07:49] VITALS: BP 103/55; PULSE 60; RESP 14; O2SAT 96
[2023-08-24 07:59] VITALS: BP 107/60; PULSE 60; RESP 14; O2SAT 98
[2023-08-24 08:09] VITALS: BP 137/69; PULSE 60; RESP 22; O2SAT 98
--- NOTE | 2023-08-24 08:19 | SUR.PHASEII ---
Dr Walker notified of pt's c/o continuous watering and pain in L eye. Orders received for corneal abrasion care set. Eye drops administered. Pt reports mild symptom improvement.
[2023-08-24] MEDS: DICLOFENAC SODIUM 0.1% OPHTH SOLN 2.5 ML BOTTLE 1 DROP EACH EYE (08:30)
[2023-08-24] MEDS: PROPARACAINE HCL 0.5% 15 ML OPHTH SOLN 1 DROP EACH EYE (08:30)
[2023-08-24] MEDS: ARTIFICIAL TEARS OPHTH SOLN 15 ML BOTTLE 1 DROP EACH EYE (08:31)
--- NOTE | 2023-09-03 15:24 | WPDANESEPPF ---
Anes - Initial Pre Proc Eval Procedure: Operation Date: 08/24/23 07:30 Proposed Procedures p Colonoscopy - Niranjan Wallis MD Date/Time: 09/03/23 15:24 Surgeon: Niranjan Wallis MD Pre Op Diagnosis: change in bowel habits, constipation Patient Data Age: 68 Gender: F Height: 1.63 m Weight: 76 kg Last Vital Signs Temp 98.0 F 08/24/23 06:12 Pulse 60 08/24/23 08:09 Resp 22 H 08/24/23 08:09 BP 137/69 08/24/23 08:09 Pulse Ox 98 08/24/23 08:09 O2 Del Method Room Air 08/24/23 08:09 Allergies Allergy/AdvReac Type Severity Reaction Status Date / Time codeine Allergy Intermediate ITCHING Verified 08/26/23 11:04 morphine Allergy Intermediate ITCHING Verified 08/26/23 11:04 Home Medications Medication Instructions Recorded Confirmed Type alprazolam 1 mg tablet 1 mg PO DAILY 12/12/20 08/26/23 History clonazepam 1 mg tablet 1 mg PO TID 01/29/22 08/26/23 History aspirin 81 mg tablet,delayed 81 mg PO QAM 1 month #30 tabs 04/27/22 08/26/23 Rx release acetaminophen 500 mg tablet 500 mg PO Q6H PRN Pain 10/09/22 08/26/23 History carvedilol 3.125 mg tablet 3.125 mg PO Q12H 10/09/22 08/26/23 History gabapentin 800 mg tablet 800 mg PO BID PRN Pain 01/08/23 08/26/23 History lamotrigine 100 mg tablet 200 mg PO DAILY 01/08/23 08/24/23 History hydrochlorothiazide 12.5 mg tablet 12.5 mg PO DAILY #90 tabs 07/01/23 08/26/23 Rx duloxetine 60 mg capsule,delayed 120 mg PO DAILY 07/15/23 08/26/23 History release topiramate 100 mg tablet 100 mg PO DAILY 07/15/23 08/26/23 History linaclotide 72 mcg capsule 72 mcg PO DAILY #90 caps 08/26/23 08/26/23 Rx (Linzess) amitriptyline 10 mg tablet 10 mg PO QHS #90 tabs 08/27/23 Rx lisinopril 10 mg tablet 10 mg PO DAILY #90 tabs 08/27/23 Rx Patient hx anesthesia problems: none Family hx anesthesia problems: none Results Review: All pre-operative results and documents have been reviewed as part of the pre-operative evaluation. [facility] Past Medical History Medical History Arthritis Bipolar disorder Depression with anxiety Fibromyalgia Gastroesophageal reflux disease Surgical History Surgical History History of hysterectomy For endometriosis. Family History Family History Father Hypertension Thyroid condition Atrial fibrillation Mother Hypertension Sibling Hypertension Thyroid condition Father Hypertension Family history of arthritis Mother Hypertension Family history of arthritis Family history of chronic obstructive pulmonary disease Social History Social History Social History: Caffeine: rarely Surrogate medical decision maker: Wes Nelson, spouse. Code status: Full code. Smoking status: Never smoker Alcohol intake: never Substance use: never Substance use type: does not use Do You Feel Safe in your Home?: Yes Lack of Transportation: No Lack of Food: Never True Current Housing: I Have Housing Concerned About Future Housing: Decline to Answer Difficulty Paying Gas/Electric Bills: Decline to Answer Difficulty Paying for Meds: No Currently Unemployed: No Education: High School Diploma/GED Difficulty w/ Childcare or Family Care: No Living arrangements: other Additional living arrangements comments: with sp Spiritual care concerns: No Anes - Eval Final PreProcedure Day of Procedure 09/03/23 15:24 Patient weight: normal Heart: regular rate and rhythm Lungs: clear to auscultation Airway: Mallampati scale class II Neurological: alert and oriented Last oral intake: >/= 8 hours ASA classification: III Emergent: no Anesthetic plan: proceed Anesthesia type and monitoring: general GIVS and standard monitoring Results Review: All pre-operative results
== END 2023-08-24 08:36 | disposition home or self-care (01) ==
PROVIDERS: PCP Internal Medicine; Visit Provider Internal Medicine Gastroenterology
PROC: 0DJD8ZZ Inspection of Lower Intestinal Tract, Via Natural or Artificial Opening Endoscopic (ICD-10-PCS; CPT 45378; principal; 2023-08-24 07:30)
DX: K57.30 Diverticulosis of large intestine without perforation or abscess without bleeding (principal); K63.5 Polyp of colon; K64.8 Other hemorrhoids; F31.9 Bipolar disorder, unspecified; F41.8 Other specified anxiety disorders; M79.7 Fibromyalgia; K21.9 Gastro-esophageal reflux disease without esophagitis
CPT/HCPCS: 45385; 88305; A9270; J2704; J7120

== ENCOUNTER 2024-10-10 18:35 | Emergency (ER) | payer MEDICARE, SELFPAY ==
--- NOTE | ~2024-10-10 | XR_ITS ---
EXAM: XR ankle LT min 3V DATE: 10/10/2024 19:04 HISTORY: left ankle pain, swelling, fall . COMPARISON: 09/23/2004. FINDINGS: Decreased mineralization. Vertically oriented nondisplaced fracture in the medial malleolu s. Small nondisplaced avulsion fracture at the tip of the lateral malleolus. Nondisplaced posterior m alleolar fracture. No lytic or blastic lesion. Mild scattered degenerative change. Achilles and plant ar enthesopathy. No erosion or periosteal change. Circumferential ankle soft tissue swelling. IMPRESSION: Nondisplaced trimalleolar ankle fracture. Reviewed, dictated and finalized at location K.
[2024-10-10 18:38] VITALS: BP 151/73; PULSE 64; RESP 16; TEMP 36.6; O2SAT 100
--- NOTE | 2024-10-10 18:51 | ED_ITS ---
HPI - Extremity Injury (Lower) General Chief Complaint: Extremity Injury, Lower Stated Complaint: FALL, LEFT ANKLE DEFORMITY Time Seen by Provider: 10/10/24 18:36 Source: patient Mode of arrival: EMS Limitations: no limitations History of Present Illness HPI Narrative: This is a 69-year-old female that presents to the emergency department after a fall today with left ankle injury. Reports she missed the last step or 2 as she slipped. She tried to catch herself and twisted her left ankle. Reports swelling and pain to the area. Reports decreased range of motion due to pain. Denies numbness. Related Data Home Medications ?Medication ?Instructions ?Recorded ?Confirmed ?Last Taken ?Type alprazolam 1 mg tablet 1 mg PO DAILY 12/12/20 09/29/24 Unknown History clonazepam 1 mg tablet 1 mg PO TID 01/29/22 09/29/24 Unknown History acetaminophen 500 mg tablet 500 mg PO Q6H PRN Pain 10/09/22 09/29/24 Unknown History carvedilol 3.125 mg tablet 3.125 mg PO Q12H 10/09/22 09/29/24 08/24/23 History gabapentin 800 mg tablet 800 mg PO BID PRN Pain 01/08/23 09/29/24 Unknown History duloxetine 60 mg capsule,delayed 120 mg PO DAILY 07/15/23 09/29/24 Unknown History release topiramate 100 mg tablet 100 mg PO DAILY PRN 10/06/23 09/29/24 Unknown History lamotrigine 200 mg tablet mg PO 09/29/24 09/29/24 Unknown History quetiapine 50 mg tablet mg PO 09/29/24 09/29/24 Unknown History Allergies Allergy/AdvReac Type Severity Reaction Status Date / Time codeine Allergy Intermediate ITCHING Verified 10/10/24 19:23 morphine Allergy Intermediate ITCHING Verified 10/10/24 19:23 Review of Systems Review of Systems: CONSTITUTIONAL: Denies fever MUSCULOSKELETAL: Reports joint pain, and myalgia. NEUROLOGIC: Denies numbness All systems reviewed & are unremarkable except as noted in HPI and below PMFSH Past Medical History Medical History Depression with anxiety Arthritis Fibromyalgia Gastroesophageal reflux disease Bipolar disorder Surgical History Surgical History History of hysterectomy For endometriosis. Family History Family History Father Hypertension Thyroid condition Atrial fibrillation Mother Hypertension Sibling Hypertension Thyroid condition Father Hypertension Family history of arthritis Mother Hypertension Family history of arthritis Family history of chronic obstructive pulmonary disease Social History Social History Social History: Caffeine: rarely Surrogate medical decision maker: Wes Nelson, spouse. Code status: Full code. Smoking status: Never smoker Alcohol intake: never Substance use: never Substance use type: does not use Do You Feel Safe in your Home?: Yes Lack of Transportation: No Lack of Food: Never True Current Housing: I Have Housing Concerned About Future Housing: No Difficulty Paying Gas/Electric Bills: No Difficulty Paying for Meds: Decline to Answer Currently Unemployed: No Education: High School Diploma/GED Difficulty w/ Childcare or Family Care: No Living arrangements: other Additional living arrangements comments: with sp Spiritual care concerns: No Exam Narrative: GENERAL: Well-appearing, well-nourished, and in no acute distress. HEAD: Normocephalic, atraumatic. EYES: EOMI. CHEST: No respiratory distress. HEART: Regular rate EXTREMITIES: Decreased active ROM in the left ankle. Edema about the ankle medially and laterally. Normal DP pulse. Normal sensation SKIN: Warm, dry, no rash. NEURO: No focal deficits. Alert and oriented x3. PSYCH: Normal mood and affect Course Course Emergency Course: Patient ambulatory with walker and crutches Consultations Consultation #1: Spoke with Dr. Helton. If patient is able to mobilize she may follow up in clinic Date: 10/10/24 Vital Signs Vital signs: Vital Signs Temperature 97.8 F 10/10/24 18:38 Pulse Rate 64 10/10/24 18:38 Respiratory Rate 16 10/10/24 18:38 Blood Pressure 151/73 H 10/10/24 18:38 Pulse Oximetry 100 10/10/24 18:38 Oxygen Delivery Room Air 10/10/24 18:38 Temperature 97.8 F 10/10/24 18:38 Pulse Rate 67 10/10/24 20:17 Respiratory Rate 15 10/10/24 20:17 Blood Pressure 144/66 H 10/10/24 20:17 Pulse Oximetry 100 10/10/24 20:17 Oxygen Delivery Room Air 10/10/24 18:38 Procedures Orthopedic Splinting/Casting Injury #1: Splinting/Casting Date: 10/10/24 Splinting/Casting Time: 20:25 Side: left Lower Extremity Injury Location: ankle Lower Extremity Immobilizer: posterior splint Splint: customized in ED OCL: short leg Pre-Procedure Neuro Vascular Exam: normal Post-Procedure Neuro Vascular Exam: normal Other Orthopedic Equipment: crutches and other (patient has a walker at home) MDM - Extremity Injury (Lower) MDM Narrative Medical decision making narrative: Patient presents to the emergency department after a fall today with left ankle injury. She is neurovascularly intact. Left ankle x-ray shows a nondisplaced trimalleolar fracture. Patient placed in a posterior splint. Spoke with Dr. Helton. If patient is able to mobilize she may follow up in clinic. Patient ambulatory with walker and crutches Differential Diagnosis Differential diagnosis: Likely ankle sprain and strain and ankle fracture Imaging Data Radiologist's impression: ITS Impressions Ankle X-Ray 10/10/24 19:04 IMPRESSION: Nondisplaced trimalleolar ankle fracture. Critical Care Time Critical Care Time Critical Care Time: No Discharge Plan Discharge Clinical Impression: Closed trimalleolar fracture of ankle Qualifiers: Encounter type: initial encounter Laterality: left Qualified Code(s): S82.852A - Displaced trimalleolar fracture of left lower leg, initial encounter for closed fracture Patient Disposition: Home, Self-Care Condition: Stable Instructions: Ankle Fracture (ED) Additional Instructions: Return to the ER if you experience fever, redness and swelling of your extremity, numbness or any other symptoms that are concerning to you Wear splint. No weight on the affected leg. Ice and elevate extremity. Pain medication as needed and directed. Follow up with orthopedics for further care. Patient Language: Amharic Prescriptions: New hydrocodone-acetaminophen 5-325 mg tablet 1 tablet PO Q6H PRN (Reason: pain) Qty: 20 0RF No Action alprazolam 1 mg tablet 1 mg PO DAILY clonazepam 1 mg tablet 1 mg PO TID carvedilol 3.125 mg tablet 3.125 mg PO Q12H Rx Instructions: must administer with a meal/food acetaminophen 500 mg tablet 500 mg PO Q6H PRN (Reason: Pain) gabapentin 800 mg tablet 800 mg PO BID PRN (Reason: Pain) duloxetine 60 mg capsule,delayed release(DR/EC) 120 mg PO DAILY quetiapine 50 mg tablet PO lamotrigine 200 mg tablet PO (DME) Aerochamber MV Spacer See Rx Instructions .Route Qty: 1 0RF Rx Instructions: As directed aspirin 81 mg Tablet,Delayed Release (Dr/Ec) 81 mg PO QAM 30 Days Qty: 30 0RF topiramate 100 mg tablet 100 mg PO DAILY PRN hyoscyamine sulfate [Levsin/SL] 0.125 mg tablet, sublingual 0.125 mg sublingual QID Qty: 60 3RF amitriptyline 10 mg tablet 10 mg PO QHS Qty: 90 1RF hydrochlorothiazide 25 mg tablet 25 mg PO DAILY Qty: 90 1RF albuterol sulfate 90 mcg/actuation HFA aerosol inhaler 2 puff inhalation Q4H PRN (Reason: shortness of breath or wheezing) Qty: 8.5 3RF Wegovy 0.25 mg/0.5 mL pen injector 0.25 mg subcut WEEKLY Qty: 2 0RF Rx Instructions: administer weeks 1 through 4 of therapy Follow-up/Referrals: Kirit Helton MD [Physician] - Cynthia Vale NP [Primary Care Provider] -
--- OUTSIDE RECORDS SUMMARY | 2024-10-10 18:56 | XMS_ITS | Continuity of Care Document ---
Author Organization [facility] Address [address] [place] [address] Phone Care Team Providers Care Particle Board Supervisor Name Role Phone Augie PT, DPT, Tali Unavailable Unavaila ble Procedures Procedure Date PT Re-evaluation Therapeutic Exercise Therapeutic Activities Therapeutic Activities Neuromuscular Re-Ed Therapeutic Exercise Therapeutic Activities Neuromuscular Re-Ed Therapeutic Activities Neuromuscular Re-Ed Therapeutic Exercise Therapeutic Exercise Neuromuscular Re-Ed Therapeutic Activities Doc neg elder mal no plan Doc neg elder mal no plan Neuromuscular Re-Ed Therapeutic Activities PT Evaluation High Complexity 2 Advance Directives Directive Yes / No Effective Date File Name No Information Encounters Encounter Description Practice Location Reason(s) For Visit Diagnoses Date Provider Providers Copied on Encounter [facility], [place], [place], [id number], tel:[phone] [place] Mixed incontinenceStress incontinence (female) (male) 2 Augie Cesar. . Referring Provider: Noelle Loera, [address] [facility] [address], [place], [address]. tel:[phone] [facility], [place], [place], [address], tel:[phone] [place] No Information 2 Ghosh Tali. . Referring Provider: Noelle Loera [address] [place] [address] [address], [place], [address]. tel:[phone] [facility], [address], [place], [place], [address], tel:[phone] [place] No Information 2 Ghosh Tali. . Referring Provider: Noelle Loera [address] [place] [address] [address], [place], [address]. tel:[phone] [facility] [address], [place], [place], [address], tel:[phone] [place] No Information 2 Ghosh Tali. . Referring Provider: Noelle Loera [address] [place] [address] [address], [place], [address]. tel:[phone] [facility] [address], [place], [place], [address], tel:[phone] [place] No Information 2 Ghosh Tali. . Referring Provider: Noelle Loera [address] [place] [address] [address], [place], [address]. tel:[phone] [facility] [address], [place], [place], [address], tel:[phone] [place] Urge incontinence 2 Ghosh Tali. . Referring Provider: Noelle Loera [address] [place] [address] [address], [place], [address]. tel:[phone] Family History Family Member Type Diagnosis Age At Onset No Information Payers Payer name Insurance type Covered democrat ID Anca pepper(s) A[employer] Medicare Replacement CI [id number] Social History Type Description Quantity Date Captured Comments Alcohol Use Details Unknown Caffeine Use Details Unknown Tobacco Use Status Current non-smoker Smoking Status Never smoker Non-Smoking Tobacco Use Details : No Details Available : No Details Available Sex Female Chief Complaint And Reason For Visit No Information Reason For Referral Reason For Referral No Information Plan Of Treatment Date Type Action Status Referral Ordered: Referrals: Specialist. Evaluate and Treat (related to Adjustment disorder with depressed mood) ordered Referral Ordered: Depression: Depression management program timeframe: 1 Day. (related to Depression) ordered Referral Ordered: Clinical Psychology (related to Depression) ordered Referral Ordered: PCP timeframe: 1 week. (related to Overweight) ordered Referral Ordered: Weight management: Referral to physician timeframe: 1 Month. (related to Overweight) ordered Referral Ordered: PCP timeframe: 1 week. (related to Overweight) ordered Referral Ordered: Referrals: Specialist. Evaluate and Treat (related to Adjustment disorder with depressed mood) ordered Referral Ordered: Depression: Depression management program timeframe: 1 Day. (related to Depression) ordered Referral Ordered: Clinical Psychology (related to Depression) ordered Referral Ordered: Weight management: Referral to physician timeframe: 1 Month. (related to Overweight) ordered History Of Present Illness Encounter Date Complaint History Of Prese nt Illness No Information Functional Status Date Functional Assessmen t No Information Instructions Date Instruction Additional Infor mation Kegel exercises were explained to the patient. Related to Stress incontinence (female) (male) Kegel exercises were explained to the patient. Related to Urge incontinence Kegel exercises were explained to the patient. Related to Urge incontinence Assessments Type Assessment Date No Information Patient Care Teams Name Effective Dates (start - stop) Status Members No Information
--- OUTSIDE RECORDS SUMMARY | 2024-10-10 18:56 | XMS_ITS | Continuity of Care Document ---
Author Organization [facility] Address [address] [place] [address] [address] [facility] [address] [place] [address] Phone Care Team Providers Care Thread Winder Name Role Phone Keshav Malloy Unavailable Unavailable Procedures Procedure Date Office/outpatient Visit, [facility] Advance Directives Directive Yes / No Effective Date File Name No Information Encounters Encounter Description Practice Location Reason(s) For Visit Diagnoses Date Provider Providers Copied on Encounter Office/outpat ient Visit, [facility], [address], [place], [place], [id number], [place] tel:[phone] [facility] No Information 0 Gama Keshav. [address], [place], [address], [place]. tel:[phone] Family History Family Member Type Diagnosis Age At Onset No Information Payers Payer name Insurance type Covered libertarian ID Authoriza tion(s) No Information Social History Type Description Quantity Date Captured Comments Sex Female Smoking Status No Information Chief Complaint And Reason For Visit No Information Reason For Referral Reason For Referral No Information History Of Present Illness Encounter Date Complaint History Of Prese nt Illness No Information Functional Status Date Functional Assessmen t No Information Instructions Date Instruction Additional Infor mation No Information Assessments Type Assessment Date No Information Patient Care Teams Name Effective Dates (start - stop) Status Members No Information
--- OUTSIDE RECORDS SUMMARY | 2024-10-10 18:56 | XMS_ITS | CONTINUITY OF CARE DOCUMENT ---
Author Name [email or web address] Address Unknown Organization [facility] Address [address] [place] [address] Phone [phone] Care Team Providers Care Financial Planning Analyst Name Role Phone Alvin WEIR, Sean Unavailable [phone] LEONARDO CORTES MD Unavailable [phone] LEONARDO CORTES MD Unavailable [phone] INSURANCE PROVIDERS Payer name Policy type / Coverage type [place] red democrat ID A[employer] MEDICARE GOLD ADVANTAGE HMO Medicare [id number]
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
--- OUTSIDE RECORDS SUMMARY | 2024-10-10 18:57 | XMS_ITS | Clinical Summary ---
Author Organization [facility] Address [address] [place] [address] Care Team Providers Care Jewelry Sales Name Role Phone Unavailable Primary Care Provider Unavailabl e Social History Tobacco Use Types Packs/Day Years Used Date Smoking Tobacco: Never Assessed Comments Unknown Sex and Gender Information Value Date Recorded Sex Assigned at Not on file Legal Sex Female 5:52 PM CDT Gender Identity Not on file Sexual Orientation Not on file Last Filed Vital Signs Vital Sign Reading Time Taken Comments Blood Pressure 166/94 04/23/2014 3:09 PM CDT Pulse - - Temperature - - Respiratory Rate - - Oxygen Saturation - - Inhaled Oxygen Concentration - - Weight 59 kg (130 lb) 04/23/2014 3:09 PM CDT Height 161.3 cm (5' 3.5 ) 04/23/2014 3:09 PM CDT Body Mass Index 22.67 04/23/2014 3:09 PM CDT Plan of Treatment Health Maintenance Due Date Last Done Comments Colorectal Cancer Screening Colonoscopy (10 Years) 1953 Hepatitis C 1971 Mammogram Screening 1993 Zoster Vaccines (1 of 2) 2003 DTaP, Tdap and Td Vaccines ( 1 - Tdap) 12/11/2006 12/10/2006 Dexa Scan (General) 2018 Pneumococcal Vaccine: 65+ Years (1 of 1 - PCV) 2018 COVID-19 Vaccine ( - 2023-2 5 season) 2024 Influenza Adult (#1) 2024 04/23/2014, 05/31/2013 RSV Immunization or 60+ Years (1 - 1-dose 75+ series) 2028 Meningococcal B Vaccine Aged Out No l onger eligible based on patient's age to complete this topic Meningococcal Vaccine Aged Out No corey gabe eligible based on patient's age to complete this topic RSV Immunizations Under 20 Months Aged Out No longer eligible b ased on patient's age to complete this topic
--- OUTSIDE RECORDS SUMMARY | 2024-10-10 18:57 | XMS_ITS | Referral Summary ---
Author Organization [facility] [place] [address] [facility] [address] [place] [address] Care Team Providers Care Shoeblack Name Role Phone Last Loyd DO Primary Care Provider [phone]- [phone] Piyush Patiño MD Unavailable Encounters Date Type Department Care Team Description 10/02/2024 1:00 PM CDT Office Visit [facility] Cardiology [address] [place] [address] Marisabel Wilson MD Mixed hyperlipidemia (Primary Dx); Takotsubo cardiomyopathy; Essential hypertension from Last 3 Months Allergies Active Allergy Reactions Criticality Noted Date [...] tablet (10 mg total) by mouth nightly 024 Active Linzess 72 mcg capsule 72 MCG [...] Date Resolved Date History of cardiomyopathy 01/26/2023 Social History Tobacco Use Types Packs/Day Years [...] money to buy more. Never true 10/15/19 23 Within the past 12 months, t he food you bought just didn't last and you didn't have money to get more. 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 Gender Identity Not on file Sexual Orientation [...] 10/02/2024 12:56 PM CDT Plan of Treatment Not on file Procedures Procedure Name Priority Date/Time Associated Diagnosis [...] Final Result from Last 3 Months Insurance [employer] MEDICARE GOLD T MEDICARE [id number] GOLD TH[employer] LIABILITY - GENERIC Advance Directives For more information, please contact: [phone] * Full Code (Latest Code Status on File) Date Activated Date Inactivated Comments 09/23/2022 4:58 PM 10/02/2022 6:35 PM Care Teams Shoeblack Relationship Specialty Start Date End Date Last Loyd DO PCP - General Internal Medicine 04/25/22 Piyush Patiño MD [address] [facility] [address] [place] [address] Fellow Orthopedic Surgery 10/02/22
[2024-10-10 19:03] VITALS: BP 172/86; PULSE 66; RESP 10; O2SAT 100
[2024-10-10] MEDS: fentaNYL CITRATE INJ (*CRX) 100 MCG/2 ML VIAL 50 MCG IV PUSH (19:05)
[2024-10-10 19:07] VITALS: BP 172/86; PULSE 63; RESP 15; O2SAT 100
[2024-10-10 19:17] VITALS: BP 151/68; PULSE 62; RESP 15; O2SAT 98
[2024-10-10] MEDS: IBUPROFEN 600 MG TABLET PO (19:47)
[2024-10-10] MEDS: ONDANSETRON INJ 4 MG/2 ML VIAL IV PUSH (19:47)
[2024-10-10 20:17] VITALS: BP 144/66; PULSE 67; RESP 15; O2SAT 100
[2024-10-10 20:42] VITALS: BP 144/66; PULSE 67; RESP 15; O2SAT 100
== END 2024-10-10 20:45 | disposition home or self-care (01) ==
PROVIDERS: Emergency Provider Physician Assistant; PCP Nurse Practitioner
DX: S82.852A Displaced trimalleolar fracture of left lower leg, initial encounter for closed fracture (principal); F41.9 Anxiety disorder, unspecified; F32.A Depression, unspecified; M19.90 Unspecified osteoarthritis, unspecified site; M79.7 Fibromyalgia; K21.9 Gastro-esophageal reflux disease without esophagitis; W01.0XXA Fall on same level from slipping, tripping and stumbling without subsequent striking against object, initial encounter
CPT/HCPCS: 29515; 73610; 96374; 96375; 99284; A9270; J2405; J3010